=== PATIENT | female | born 1960 | race Caucasian/White ===

== ENCOUNTER 2016-04-18 13:41 | Emergency (ER) | payer BC ==
[2016-04-18] MEDS ORDERED: KETOROLAC 60 MG/2 ML VIAL IM ONE (15:42)
== END 2016-04-18 17:42 | disposition home or self-care (01) ==
LOC: ER 13:41
DX: M54.6 Pain in thoracic spine (principal)
CPT/HCPCS: 36415; 71020; 80048; 82553; 84484; 85025; 93005; 96372